=== PATIENT | female | born 1955 | race Caucasian/White ===

== ENCOUNTER → 2018-12-15 | Outpatient (CLI) | payer OTHER ==
[~2018-12-15] MED LIST: AMLODIPINE BESY10 MG PO; COUMADIN 2 MG TA2 M1; FELODIPINE ER10 MG PO; HYDROCHLOROTH12.5 MG PO; HYDROCHLOROTHIA25 M2 PO; OXYBUTYNIN 5 MG5 M1 PO; OXYCODONE-ACET1 EACH PO; PERCOCET 10-321 EACH; PERCOCET PO; PRILOSEC 20 MG20 MG PO; SENNA-S TABLET1 EACH PO; VESICARE 5 MG TA5 M1 PO
== END ==
LOC: CAT 14:06
DX: Z13.6 Encounter for screening for cardiovascular disorders (principal); E78.00 Pure hypercholesterolemia, unspecified; I25.10 Atherosclerotic heart disease of native coronary artery without angina pectoris